=== PATIENT | female | born 1975 | race Caucasian/White ===

== ENCOUNTER 2021-03-17 12:10 | Emergency (ER) | payer SELFPAY ==
[~2021-03-17] VITALS: Ht 157.5 cm; Wt 72.6 kg
[2021-03-17] MEDS ORDERED: KETOROLAC TROMETHAMINE 30 MG INJ IM ONE (13:00)
[2021-03-17] MEDS ORDERED: NAPR-1164 PO (13:01)
--- NOTE | 2021-03-17 13:18 | NUR ---
Patient discharged to home in stable condition. Written and verbal after care instructions given. Patient verbalizes understanding of instructions. 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
[2021-03-17] MEDS ORDERED: KETOROLAC TROMETHAMINE 30 MG INJ ONE (13:19)
== END 2021-03-17 13:38 | disposition home or self-care (01) ==
LOC: ER 12:10
DX: M54.6 Pain in thoracic spine (principal); M54.2 Cervicalgia
CPT/HCPCS: 72040; 96372; 99283; J1885; A4663